=== PATIENT | female | born 1970 | race Caucasian/White ===

== ENCOUNTER → 2016-05-22 | Day surgery (SDC) | payer OTHER ==
[~2016-05-22] MED LIST: APREPITANT 40 MG CAP ONE; BUPIVACAINE HCL PF 0.5% 10 ML VIAL ONE; KETOROLAC TROMETHAMINE 30 MG/ML (IVP) VIAL IV PUSH ONE; LACTATED RINGER'S 1000 ML INJ 1,000 ML ONE; MIDAZOLAM HCL 2 MG/2 ML VIAL ONE; MORPHINE SULFATE 4 MG/ML INJ ONE; ONDANSETRON HCL 4 MG/2 ML VIAL IV PUSH ONE; PROPOFOL 200 MG/20 ML AMP IV ONE; ceFAZolin 2 GM PREMIX 50 ML ONE; oxyCODONE/ACETAMINOPHEN 5 MG/325 MG TAB ONE
--- NOTE | 2016-05-23 15:39 | MP ---
cc: ALICIA HERNANDEZ DATE OF SURGERY: 05/22/[address] Alicia Hernandez CELL RELINER None. 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 PROCEDURE PERFORMED Left talus bone biopsy and cultures. PATHOLOGY SENT Left talus bone biopsy x3, one of the lateral intermediate facet, one of the lateral anterior talar head, one of the lateral plantar anterior facet, and one culture swab of the soft tissue. ANESTHESIA General. HEMOSTASIS Pneumatic calf tourniquet at 250 mmHg. ESTIMATED BLOOD LOSS Less than 10 mL. INJECTABLES 10 cc of 0.5% Marcaine plain. MATERIALS USED 3-0 Monocryl, 3-0 Prolene. COMPLICATIONS None. INDICATIONS Ms. Ayala is a 45-year-old female with over a one year history of left foot pain, particularly at the talonavicular joint, subtalar joint and the lateral midfoot joint. Evaluation of her foot was unusual and elected for a new MRI. The new MRI showed an aggressive bony process which could not be identified on the MRI. Decision was made to biopsy the area before performing any definitive surgeries. The patient understands that there is a wide variety of causes that could be responsible for this cyst, one of which may be a malignancy. I did speak with the pathologist prior to surgery to ensure that all specimens were sent in an appropriate manner. The consent was signed. The procedure was explained. No guarantees were given. DETAILS OF PROCEDURE Under mild sedation the patient was brought into the operating room, placed on the operating table in supine position. Following IV sedation, a pneumatic calf tourniquet was placed on the left calf. The leg was then scrubbed, prepped and draped in the usual aseptic manner. Fluoroscopy was used to kaylee out the subtalar joint as the bulk of the cyst on MRI is concentrated at the plantar aspect of the talus into the subtalar joint. A linear longitudinal incision from the distal aspect of the fibula in the direction of the fourth metatarsal base was deepened through skin and subcutaneous tissue with care being taken to identify and retract any vital neurovascular structures. It was deepened down to the level of the joint. There was then noted serous fluid as the incision was deepened consistent with some type of cyst possibly ganglion, however, no cyst was appreciated and the fluid was a little more viscous and not gelatinous like you would appreciate with a ganglion. A swab was taken and sent to microbiology to confirm the identity of the fluid. The middle and anterior facets were appreciated and confirmed again on fluoroscopy. A small osteotome was then used to create a window in the most plantar aspect of the talus where it articulates with the medial facet. A 0.5 x 0.5 square window was removed from that area and cancellus bone was taken with it and sent to pathology for further evaluation. A similar biopsy was done at the dorsal aspect of the talar head and at the plantar aspect of the talus at the anterior facet. Bone quality seemed slightly softer than usual but not wholly abnormal. The talar head on the lateral 50% that could be visualized was completely denuded of cartilage. The lateral half of the talar head and neck did show signs of erosion. The bone was not smooth. It showed clearly some type of erosive processes, however, the bone was still hard. There were no obvious signs of infection or necrosis. The area was then flushed with copious amounts of sterile saline. Deep and subcutaneous tissues were closed with 3-0 Monocryl, skin was closed with 3-0 Prolene. 10 cc of 0.5% Marcaine plain was injected around the incision site. The pneumatic calf tourniquet was released. There was a prompt hyperemic response to all digits of the left foot. The patient tolerated the procedure and the anesthesia well. She will recover in the PACU for a period of time before being discharged home with written and oral postoperative instructions. She is placed in a well-padded posterior splint. She is to call if she has any questions or concerns. Alicia INGRAM/MADHAV /9:37 AM /3:26 PM
== END | disposition home or self-care (01) ==
LOC: ESDC 06:29
PROVIDERS: ATTEND Podiatrist Foot & Ankle Surgery
DX: M85.48 Solitary bone cyst, other site (principal)
CPT/HCPCS: 01480; 20240; 76000; 87015; 87070; 87102; 87116; 87205; 87206; 88305; J0690; J1885; J2250; J2270; J2405; J3010; J7120; J8501; 88307; 88311

== ENCOUNTER → 2016-07-03 | Day surgery (SDC) | payer OTHER ==
[~2016-07-03] MED LIST changes: +BUPIVACAINE HCL PF 0.75% 30 ML VIAL ONE; +BUPIVACAINE/EPINEPHRINE 0.5% PF 30 ML VIAL ONE; -KETOROLAC TROMETHAMINE 30 MG/ML (IVP) VIAL IV PUSH ONE; +LIDOCAINE 1.5%/EPINEPHrine 1:200,000 PF SOLN 30 ML AMP ONE; -MIDAZOLAM HCL 2 MG/2 ML VIAL ONE; +MIDAZOLAM HCL 5 MG/ML VIAL (1 ML) ONE; -MORPHINE SULFATE 4 MG/ML INJ ONE; -PROPOFOL 200 MG/20 ML AMP IV ONE; +PROPOFOL 500 MG/50 ML BTL IV ONE; -oxyCODONE/ACETAMINOPHEN 5 MG/325 MG TAB ONE
--- NOTE | 2016-07-16 10:55 | MP ---
cc: ALICIA LITTLEJOHN DATE OF SURGERY July 03, [address] Alicia Littlejohn SECURITY SYSTEM TECHNICIAN Dr. Zafar Gracia PREOPERATIVE DIAGNOSES 1. Left foot talonavicular osteoarthritis. 2. Left foot subtalar joint osteoarthritis. POSTOPERATIVE DIAGNOSES 3. Left foot talonavicular osteoarthritis. 4. Left foot subtalar joint osteoarthritis. PROCEDURES PERFORMED 1. Left foot TN fusion. 2. Left foot STJ fusion. ANESTHESIA General with a popliteal nerve block. HEMOSTASIS Pneumatic thigh tourniquet at 120 minutes at 300 mmHg. ESTIMATED BLOOD LOSS 30 mL. MATERIALS USED Synthes headless compression screws. 3-0 Monocryl. 3-0 Prolene. COMPLICATIONS None. INDICATIONS Ms. Ayala is a patient well-known to me after chronic pain and consecutive MRIs noting arthritic changes and erosion in both joints mentioned. Bone biopsies were obtained to rule out any malignancy, all of which were negative showing only osteoarthritis. The decision was made to perform the joint fusion of the talonavicular joint and the subtalar joint. Given the patient's age, I reviewed all possible consequences in great detail. The consent was signed. The procedure was explained. No guarantees were given. PROCEDURE The patient was administered a popliteal block in the preoperative holding area. She was then brought into the operating room, placed on the operating table in supine position. Following IV sedation, a pneumatic thigh tourniquet was placed around the left thigh. The leg was then scrubbed, prepped and draped in the usual aseptic manner. An Esmarch bandage was then used to exsanguinate the left lower extremity and inflate the tourniquet to 300 mmHg. My assistant service manager, Dr. Zafar Gracia was present throughout the entirety and his skill level was made in order to allow for proper alignment and proper fixation of the fusion site while the quality assurance lab technician was busy on the back field with multiple trays of hardware. Attention was first directed to the lateral aspect of the talar joint with orientation being checked under fluoroscopy. An incision was created through the old scar incision, linear longitudinal with a slight lazy-S orientation and deepened through skin and subcutaneous tissue with care to identify and retract any vital neurovascular structures. The peroneal tendons were reflected out of the way to expose the anterior and posterior facets of the subtalar joint. Both the opposing facets were debrided of cartilage using curets and an osteotome to fishtail the surfaces and then using a 2.0 drill bit to micro-drill the area, flushed with copious amounts of sterile saline. A small ridge continued to persist in the lateral aspect which was blocking adequate alignment and compression across the site, so an oscillating saw was used to plane that area with minimal resection but allowing for adequate reduction. The area was again flushed with copious amounts of sterile saline and temporarily pinned in place in order to confirm under fluoroscopy excellent alignment and compression. This was confirmed and the two cannulated drill bits were then inserted from the posterior aspect of the calcaneus into the talar neck and one into the talar body. They were countersunk, measured and then inserted with the Synthes guideline as far as insertion of their compression headless screw. Excellent placement of the screws was noted. The subtalar joint was anatomically aligned and compression was noted across the osteotomy site, both visually as well as radiographically. Attention was then directed to the medial aspect of the talonavicular joint where a longitudinal incision was created, deepened through skin and subcutaneous tissue with care being taken to identify and retract any vital neurovascular structures. It was deepened through to the level of cartilage. The opposing surfaces of cartilage were denuded using a curet and then retrograde drilled using a 2.0 drill bit. It was of note that the dorsal aspect of the talar head just behind the cartilaginous surface had a large cystic area which was filled with fat and soft tissue deposits. It appears that this was the cyst noted on MRI. Despite the size of the cyst, the surrounding bone was healthy and hard in nature and would allow for adequate hardware implementation. Two screws were then placed, one from the talar neck medially into the lateral navicular and one from the medial navicular into the lateral talar head. There was excellent compression noted across the osteotomy site. Alignment was then checked under fluoroscopy and noted to be anatomical. The area was flushed with copious amounts of sterile saline. The pneumatic ankle tourniquet was released. Any and all bleeders were cauterized and ligated as necessary. The deep and subcutaneous tissues were closed with 3-0 Monocryl and skin was closed with 3-0 Prolene. A well-padded posterior splint was applied along with sterile nonadherent Adaptic to the incision site. The patient tolerated the procedure and the anesthesia well. She will recover in the PACU for a period of time before being discharged home with written and oral postoperative instructions. Alicia INGRAM/SSB /9:15 PM /10:24 AM
== END | disposition home or self-care (01) ==
LOC: ESDC 06:30
PROVIDERS: ATTEND Podiatrist Foot & Ankle Surgery
DX: M19.072 Primary osteoarthritis, left ankle and foot (principal)
CPT/HCPCS: 01480; 28725; 28740; 64450; 73630; 76000; C1713; C1769; J0690; J2250; J2405; J3010; J7120; J8501